=== PATIENT | male | born 1985 | race Hispanic/Latino ===

== ENCOUNTER 2022-04-29 17:00 | Emergency (ER) | payer OTHER, SELFPAY ==
[2022-04-29] MEDS ORDERED: Mag-Al 1200 mg/1200 mg/30 ML UDCUP ONE (18:23)
[2022-04-29] MEDS ORDERED: Acetaminophen 325 MG TAB ONE (18:23)
[2022-04-29] MEDS ORDERED: Lidocaine Viscous Sol 2% 15 ml UD Cup ONE (18:23)
[2022-04-29 18:52] LABS: #Eosinphils 0.1 thou/uL (0.0-0.7); #Lymphocytes 1.2 thou/uL (1.20-3.40); #Monocytes 0.5 thou/uL (0.11-0.59); #Neutrophils 6.2 thou/uL (1.40-6.50); %Basophils 0.3 % (0.0-1.0); %Eosinophils 1.4 % (0.0-10.0); %Lymphocytes 14.9 % (21.0-51.0); %Monocytes 6.7 % (0.0-10.0); %Neutrophils 76.7 % (42.0-75.0); Hemoglobin 15.9 g/dL (14.0-18.0); Mean Corpuscular HGB CONC 33.4 g/dL (32.0-36.0); Mean Corpuscular Hemoglobin 31.2 pg (27.0-31.0); Mean Corpuscular Volume 93.5 fL (78.0-98.0); RBC Distribution Width 12.7 % (11.5-14.5); Red Blood Cell (RBC) Count 5.08 mill/uL (4.70-6.10); White Blood Cell (WBC) Count 8.2 thou/uL (4.8-10.8)
[2022-04-29 19:06] LABS: Large Platelets SLIGHT; MDiff Complete? YES; Mean Platelet Volume 10.1 fL (7.4-10.4); Platelet Count 130 thou/uL (130-400); Platelet Morphology Comment Appears Adequate; RBC Morphology Normal
[2022-04-29 19:21] LABS: ALT (SGPT) 19 U/L (8-55); AST (SGOT) 18 U/L (5-34); Albumin 4.5 g/dL (3.5-5.0); Alkaline Phosphatase 83 U/L (40-110); Anion Gap 14 mmol/L (10-20); BUN (Urea Nitrogen) 10 mg/dL (8.9-20.6); Bilirubin, Total 0.7 mg/dL (0.2-1.2); Calc. Creatinine Clearance 0 mL/min (70-130); Carbon Dioxide 25 mmol/L (22-29); Chloride 105 mmol/L (98-107); Estimated GFR 101; Globulin 2.8 g/dL (2.4-3.5); Glucose 89 mg/dL (70-105); Protein, Total 7.3 g/dL (6.0-8.3); Sodium 140 mmol/L (136-145)
== END 2022-04-29 20:06 ==
LOC: ERS 17:00
DX: R07.9 Chest pain, unspecified (principal); F17.210 Nicotine dependence, cigarettes, uncomplicated
CPT/HCPCS: 36415; 80053; 84484; 85025; 93005

== ENCOUNTER 2022-07-30 15:09 | Emergency (ER) | payer BC, OTHER ==
[2022-07-30] MEDS ORDERED: Ibuprofen 800 MG TAB ONE (17:01)
[2022-07-30] MEDS ORDERED: Acetaminophen 500 MG TAB ONE (17:01)
== END 2022-07-30 18:51 | disposition home or self-care (01) ==
LOC: ERS 15:09
DX: J02.9 Acute pharyngitis, unspecified (principal); F17.290 Nicotine dependence, other tobacco product, uncomplicated
CPT/HCPCS: 87081; 87430; 87804; 99283

== ENCOUNTER 2022-08-01 13:41 | Emergency (ER) | payer BC ==
[2022-08-01] MEDS ORDERED: Ibuprofen 200 MG TAB ONE (14:59)
== END 2022-08-01 15:02 | disposition home or self-care (01) ==
LOC: ERS 13:41
DX: J03.00 Acute streptococcal tonsillitis, unspecified (principal); F17.290 Nicotine dependence, other tobacco product, uncomplicated
CPT/HCPCS: 99282

== ENCOUNTER 2022-09-09 08:19 | Emergency (ER) | payer BC ==
[2022-09-09 08:52] LABS: #Basophils 0.1 thou/uL (0.0-0.2); #Eosinphils 0.2 thou/uL (0.0-0.7); #Lymphocytes 2.2 thou/uL (1.20-3.40); #Monocytes 0.7 thou/uL (0.11-0.59); %Basophils 0.8 % (0.0-1.0); %Eosinophils 1.9 % (0.0-10.0); %Lymphocytes 26.9 % (21.0-51.0); %Monocytes 8.7 % (0.0-10.0); %Neutrophils 61.8 % (42.0-75.0); Hemoglobin 15.6 g/dL (14.0-18.0); Mean Corpuscular HGB CONC 33.9 g/dL (32.0-36.0); Mean Corpuscular Hemoglobin 31.6 pg (27.0-31.0); Mean Corpuscular Volume 93.3 fl (78.0-98.0); Mean Platelet Volume 10.1 fL (7.4-10.4); Platelet Count 158 10x3/uL (130-400); RBC Distribution Width 12.1 % (11.5-14.5); Red Blood Cell (RBC) Count 4.94 mill/uL (4.70-6.10); White Blood Cell (WBC) Count 8.2 10x3/uL (4.8-10.8)
[2022-09-09] MEDS ORDERED: Ketorolac Tromethamine 30 MG/ML VIAL ONE (08:57)
[2022-09-09 09:02] LABS: ALT (SGPT) 11 U/L (8-55); AST (SGOT) 18 U/L (5-34); Albumin 4.5 g/dL (3.5-5.0); Alkaline Phosphatase 71 U/L (40-110); Anion Gap 15 mmol/L (10-20); BUN (Urea Nitrogen) 14 mg/dL (8.9-20.6); Bilirubin, Total 0.3 mg/dL (0.2-1.2); Calc. Creatinine Clearance 0 mL/min (70-130); Calcium 8.8 mg/dL (7.8-10.44); Carbon Dioxide 22 mmol/L (22-29); Chloride 108 mmol/L (98-107); Estimated GFR 92; Globulin 2.6 g/dL (2.4-3.5); Glucose 93 mg/dL (70-105); Potassium 3.6 mmol/L (3.5-5.1); Protein, Total 7.1 g/dL (6.0-8.3); Sodium 141 mmol/L (136-145)
== END 2022-09-09 09:44 | disposition home or self-care (01) ==
LOC: ERS 08:19
DX: R07.81 Pleurodynia (principal); F17.290 Nicotine dependence, other tobacco product, uncomplicated
CPT/HCPCS: 71045; 80053; 83690; 84484; 85025; 93005; 96374; J1885

== ENCOUNTER 2022-11-01 07:35 | Emergency (ER) | payer BC, OTHER ==
[2022-11-01 09:43] LABS: #Basophils 0.1 thou/uL (0.0-0.2); #Eosinphils 0.1 thou/uL (0.0-0.7); #Lymphocytes 2.5 thou/uL (1.20-3.40); #Monocytes 0.8 thou/uL (0.11-0.59); #Neutrophils 7.3 thou/uL (1.40-6.50); %Basophils 0.6 % (0.0-1.0); %Eosinophils 0.8 % (0.0-10.0); %Lymphocytes 23.5 % (21.0-51.0); %Monocytes 7.1 % (0.0-10.0); %Neutrophils 67.9 % (42.0-75.0); Hemoglobin 15.8 g/dL (14.0-18.0); Mean Corpuscular HGB CONC 33.8 g/dL (32.0-36.0); Mean Corpuscular Hemoglobin 31.9 pg (27.0-31.0); Mean Corpuscular Volume 94.2 fl (78.0-98.0); Mean Platelet Volume 9.8 fL (7.4-10.4); Platelet Count 144 10x3/uL (130-400); RBC Distribution Width 12.1 % (11.5-14.5); Red Blood Cell (RBC) Count 4.94 mill/uL (4.70-6.10); White Blood Cell (WBC) Count 10.7 10x3/uL (4.8-10.8)
[2022-11-01 10:08] LABS: ALT (SGPT) 19 U/L (8-55); AST (SGOT) 19 U/L (5-34); Albumin 4.5 g/dL (3.5-5.0); Alkaline Phosphatase 63 U/L (40-110); Anion Gap 16 mmol/L (10-20); BUN (Urea Nitrogen) 9 mg/dL (8.9-20.6); Bilirubin, Total 0.8 mg/dL (0.2-1.2); Calc. Creatinine Clearance 0 mL/min (70-130); Calcium 9.1 mg/dL (7.8-10.44); Carbon Dioxide 22 mmol/L (22-29); Chloride 104 mmol/L (98-107); Estimated GFR 101; Globulin 2.6 g/dL (2.4-3.5); Glucose 131 mg/dL (70-105); Potassium 3.3 mmol/L (3.5-5.1); Protein, Total 7.1 g/dL (6.0-8.3); Sodium 139 mmol/L (136-145)
[2022-11-01] MEDS ORDERED: Famotidine/PF 20 mg/2ml Vial ONE (10:24)
[2022-11-01] MEDS ORDERED: Ondansetron PF 4 MG/2 ML Vial ONE (10:24)
[2022-11-01] MEDS ORDERED: Glycopyrrolate 0.2 MG/ML 5 ML SYRINGE SLOW IVP SCH (10:30)
[2022-11-01 10:40] LABS: Actual Bicarbonate (HCO3v) 25 mEq/L (22-28); Analyzer IN Cardio ER; Base Excess 1.4 mEq/L (-2.0 to +3.0); Calcium, Ionized (venous) 1.06 mmol/L (1.16-1.32); Chloride (VBG) 103 mmol/L (98-106); Hemoglobin (Hb) 16.3 g/dL (13.2-17.3); Potassium (VBG) 4.16 mmol/L (3.70-5.30); Sodium 136.8 mmol/L (133-146); pH (venous) 7.47 (7.32-7.43)
[2022-11-01] MEDS ORDERED: Potassium Chloride 20 MEQ TAB ONE (10:58)
[2022-11-01 12:31] LABS: Bilirubin Negative (Negative); Blood, Urine Negative (Negative); Clarity Clear (Clear); Glucose, Urine (Dipstick) Normal (Negative); Ketone, Urine Negative (Negative); Leukocyte Negative Leu/uL (Negative); Nitrite Negative (Negative); Protein, Urine (Dipstick) Negative (Neg-Trace); Specific Gravity, Urine 1.007 (1.002-1.036); Urobilinogen Normal mg/dL (Less than 2); pH, Urine 6.5 (5.0-9.0)
[2022-11-01 12:43] LABS: Amphetamine Not Detected (NotDetected); Barbiturates Screen Not Detected (NotDetected); Benzodiazepine Screen Not Detected (NotDetected); Cocaine Metabolite Screen Not Detected (NotDetected); Methadone Not Detected (NotDetected); Methamphetamine Not Detected (NotDetected); Opiate Screen Not Detected (NotDetected); Oxycodone Screen Not Detected (NotDetected); Phencyclidine (PCP) Not Detected (NotDetected); THC/Cannabinoid Screen Not Detected (NotDetected); Tricyclic Screen Not Detected (NotDetected)
== END 2022-11-01 12:09 | disposition home or self-care (01) ==
LOC: ERS 07:35
DX: R11.2 Nausea with vomiting, unspecified (principal); R10.13 Epigastric pain; E87.6 Hypokalemia; F17.290 Nicotine dependence, other tobacco product, uncomplicated
CPT/HCPCS: 80053; 80306; 81003; 82010; 82805; 83690; 85025; 96361; 96374; 96375; J2405; S0028

== ENCOUNTER 2022-12-26 17:29 | Emergency (ER) | payer BC ==
[~2022-12-26 17:29] MED LIST: Iopamidol-370 76% 500 ML MDV (1 ML CHARGE) ONE
[2022-12-26 19:09] LABS: #Basophils 0.1 thou/uL (0.0-0.2); #Eosinphils 0.1 thou/uL (0.0-0.7); #Lymphocytes 1.9 thou/uL (1.20-3.40); #Monocytes 0.6 thou/uL (0.11-0.59); #Neutrophils 5.4 thou/uL (1.40-6.50); %Basophils 0.7 % (0.0-1.0); %Eosinophils 1.1 % (0.0-10.0); %Lymphocytes 23.7 % (21.0-51.0); %Monocytes 6.9 % (0.0-10.0); %Neutrophils 67.7 % (42.0-75.0); Hemoglobin 16.4 g/dL (14.0-18.0); Mean Corpuscular HGB CONC 33.4 g/dL (32.0-36.0); Mean Corpuscular Hemoglobin 31.8 pg (27.0-31.0); Mean Platelet Volume 10.5 fL (7.4-10.4); Platelet Count 140 10x3/uL (130-400); Red Blood Cell (RBC) Count 5.16 mill/uL (4.70-6.10)
[2022-12-26 19:32] LABS: ALT (SGPT) 20 U/L (8-55); AST (SGOT) 14 U/L (5-34); Albumin 4.5 g/dL (3.5-5.0); Alkaline Phosphatase 69 U/L (40-110); Anion Gap 15 mmol/L (10-20); BUN (Urea Nitrogen) 9 mg/dL (8.9-20.6); Bilirubin, Total 0.5 mg/dL (0.2-1.2); Calc. Creatinine Clearance 0 mL/min (70-130); Calcium 9.6 mg/dL (7.8-10.44); Carbon Dioxide 27 mmol/L (22-29); Chloride 103 mmol/L (98-107); Estimated GFR 88; Globulin 2.7 g/dL (2.4-3.5); Glucose 102 mg/dL (70-105); Lipase 22 U/L (8-78); Potassium 4.5 mmol/L (3.5-5.1); Protein, Total 7.2 g/dL (6.0-8.3); Sodium 140 mmol/L (136-145)
== END 2022-12-26 20:30 | disposition home or self-care (01) ==
LOC: ERS 17:29
DX: K52.9 Noninfective gastroenteritis and colitis, unspecified (principal); F17.290 Nicotine dependence, other tobacco product, uncomplicated
CPT/HCPCS: 36415; 74177; 80053; 83690; 85025; Q9967

== ENCOUNTER 2023-02-10 12:02 | Emergency (ER) | payer BC ==
[2023-02-10] MEDS ORDERED: Acetaminophen 500 MG TAB ONE (13:08)
== END 2023-02-10 13:22 | disposition home or self-care (01) ==
LOC: ERS 12:02
DX: M25.511 Pain in right shoulder (principal); F17.290 Nicotine dependence, other tobacco product, uncomplicated; Z79.899 Other long term (current) drug therapy

== ENCOUNTER 2023-03-11 15:37 | Emergency (ER) | payer BC ==
[2023-03-11] MEDS ORDERED: predniSONE 20 MG TAB ONE (16:40)
[2023-03-11] MEDS ORDERED: Famotidine 20 MG TAB ONE (16:40)
[2023-03-11] MEDS ORDERED: Loratadine 10 MG TAB PO SCH (16:45)
== END 2023-03-11 17:39 | disposition home or self-care (01) ==
LOC: ERS 15:37
DX: R21 Rash and other nonspecific skin eruption (principal); F17.290 Nicotine dependence, other tobacco product, uncomplicated
CPT/HCPCS: 99282; J7512

== ENCOUNTER 2023-03-23 19:40 | Emergency (ER) | payer BC ==
[2023-03-23 21:21] LABS: #Basophils 0.1 thou/uL (0.0-0.2); #Eosinphils 0.1 thou/uL (0.0-0.7); #Neutrophils 7.1 thou/uL (1.40-6.50); %Basophils 0.4 % (0.0-1.0); %Eosinophils 1.3 % (0.0-10.0); %Monocytes 9.1 % (0.0-10.0); %Neutrophils 63.8 % (42.0-75.0); ALT (SGPT) 20 U/L (8-55); AST (SGOT) 17 U/L (5-34); Albumin 4.3 g/dL (3.5-5.0); Alkaline Phosphatase 69 U/L (40-110); Anion Gap 12 mmol/L (10-20); BUN (Urea Nitrogen) 5 mg/dL (8.9-20.6); Bilirubin, Total 0.3 mg/dL (0.2-1.2); Calc. Creatinine Clearance 0 mL/min (70-130); Calcium 8.9 mg/dL (7.8-10.44); Carbon Dioxide 26 mmol/L (22-29); Chloride 103 mmol/L (98-107); Estimated GFR 91; Globulin 2.7 g/dL (2.4-3.5); Glucose 115 mg/dL (70-105); Hemoglobin 15.6 g/dL (14.0-18.0); Mean Corpuscular HGB CONC 34.1 g/dL (32.0-36.0); Mean Corpuscular Volume 90.9 fl (78.0-98.0); Mean Platelet Volume 11.9 fL (7.4-10.4); Platelet Count 168 10x3/uL (130-400); Potassium 3.3 mmol/L (3.5-5.1); RBC Distribution Width 13.6 % (11.5-14.5); Red Blood Cell (RBC) Count 5.03 mill/uL (4.70-6.10); Sodium 138 mmol/L (136-145); White Blood Cell (WBC) Count 11.1 10x3/uL (4.8-10.8)
[2023-03-23] MEDS ORDERED: hydrOXYzine 25 MG TAB ONE (21:32)
[2023-03-23] MEDS ORDERED: Albuterol 200 PUFF INH ONE (21:32)
== END 2023-03-23 21:47 | disposition home or self-care (01) ==
LOC: ERS 19:40
DX: R06.02 Shortness of breath (principal); F17.290 Nicotine dependence, other tobacco product, uncomplicated
CPT/HCPCS: 36415; 71045; 80053; 85025; 93005

== ENCOUNTER 2023-03-31 12:41 | Emergency (ER) | payer BC ==
[2023-03-31 13:05] LABS: Mean Corpuscular HGB CONC 33.9 g/dL (32.0-36.0); Mean Corpuscular Hemoglobin 31.3 pg (27.0-31.0); Mean Corpuscular Volume 92.4 fl (78.0-98.0); Mean Platelet Volume 11.6 fL (7.4-10.4); Platelet Count 162 10x3/uL (130-400); RBC Distribution Width 13.4 % (11.5-14.5); Red Blood Cell (RBC) Count 5.11 mill/uL (4.70-6.10); White Blood Cell (WBC) Count 8.6 10x3/uL (4.8-10.8)
[2023-03-31 13:08] LABS: Delete Auto Diff?? YES; Manual Diff?? YES
[2023-03-31 13:25] LABS: INR-International Normal Ratio 0.9; Prothrombin Time 12.3 sec (12.0-14.7)
[2023-03-31 13:31] LABS: ALT (SGPT) 20 U/L (8-55); AST (SGOT) 18 U/L (5-34); Albumin 4.4 g/dL (3.5-5.0); Alkaline Phosphatase 68 U/L (40-110); Anion Gap 12 mmol/L (10-20); BUN (Urea Nitrogen) 11 mg/dL (8.9-20.6); Band 1 % (5-11); Bilirubin, Total 0.3 mg/dL (0.2-1.2); Calc. Creatinine Clearance 0 mL/min (70-130); Carbon Dioxide 26 mmol/L (22-29); CellaVision Operator ID LAB.MJL; Chloride 107 mmol/L (98-107); Eosinophils 2 % (0-10); Estimated GFR 90; Globulin 2.9 g/dL (2.4-3.5); Glucose 120 mg/dL (70-105); Lymphocytes 18 % (21-51); Monocytes 4 % (0-10); Neutrophil 68 % (42-75); PTT 22.7 sec (22.9-36.1); Platelet Adequacy Comment Platelets Normal; Protein, Total 7.3 g/dL (6.0-8.3); RBC Morphology Within Normal Limits; Reactive Lymphocytes 6 % (0-10); Sodium 141 mmol/L (136-145); Total Cell Count 114
[2023-03-31] MEDS ORDERED: Proparacaine 0.5% Opth 15 ML BOT ONE (14:00)
== END 2023-03-31 15:11 | disposition home or self-care (01) ==
LOC: ERS 12:41
DX: H53.8 Other visual disturbances (principal); R20.2 Paresthesia of skin; F17.290 Nicotine dependence, other tobacco product, uncomplicated
CPT/HCPCS: 0042T; 36416; 70450; 70496; 70498; 80053; 84484; 85025; 85610; 85730; 93005; Q9967

== ENCOUNTER 2023-04-08 11:55 | Emergency (ER) | payer BC ==
[2023-04-08] MEDS ORDERED: Ketorolac Tromethamine 30 MG/ML VIAL ONE (12:24)
== END 2023-04-08 13:25 | disposition home or self-care (01) ==
LOC: ERS 11:55 → EEVIPCON 11:55 → ERS 13:25
DX: R51.9 Headache, unspecified (principal); F17.290 Nicotine dependence, other tobacco product, uncomplicated
CPT/HCPCS: 70450; 70486; 96372; J1885

== ENCOUNTER 2023-04-22 07:30 | Emergency (ER) | payer BC ==
[2023-04-22 08:00] LABS: Hematocrit 44.2 % (42.0-52.0); Mean Corpuscular HGB CONC 33.9 g/dL (32.0-36.0); Mean Corpuscular Hemoglobin 31.3 pg (27.0-31.0); Mean Corpuscular Volume 92.3 fl (78.0-98.0); Mean Platelet Volume 11.7 fL (7.4-10.4); Platelet Count 163 10x3/uL (130-400); RBC Distribution Width 13.1 % (11.5-14.5); Red Blood Cell (RBC) Count 4.79 mill/uL (4.70-6.10); White Blood Cell (WBC) Count 7.2 10x3/uL (4.8-10.8)
[2023-04-22] MEDS ORDERED: Dicyclomine 20 MG TAB ONE (08:05)
[2023-04-22] MEDS ORDERED: Ondansetron ODT 4 MG TAB ONE ×2 (08:05→08:07)
[2023-04-22 08:06] LABS: Delete Auto Diff?? YES; Manual Diff?? YES
[2023-04-22 08:28] LABS: ALT (SGPT) 15 U/L (8-55); AST (SGOT) 16 U/L (5-34); Albumin 4.3 g/dL (3.5-5.0); Alkaline Phosphatase 65 U/L (40-110); Anion Gap 14 mmol/L (10-20); BUN (Urea Nitrogen) 7 mg/dL (8.9-20.6); Bilirubin, Total 0.5 mg/dL (0.2-1.2); Calc. Creatinine Clearance 0 mL/min (70-130); Calcium 9.2 mg/dL (7.8-10.44); Carbon Dioxide 25 mmol/L (22-29); Chloride 103 mmol/L (98-107); Estimated GFR 89; Globulin 2.5 g/dL (2.4-3.5); Glucose 153 mg/dL (70-105); Lipase 20 U/L (8-78); Potassium 3.2 mmol/L (3.5-5.1); Protein, Total 6.8 g/dL (6.0-8.3); Sodium 139 mmol/L (136-145)
[2023-04-22 09:58] LABS: Eosinophils 3 % (0-10); Lymphocytes 22 % (21-51); Metamyelocyte 1 % (0-0); Monocytes 7 % (0-10); Neutrophil 66 % (42-75)
[2023-04-22 10:02] LABS: Platelet Adequacy Comment Appears Adequate; RBC Morphology Within Normal Limits
== END 2023-04-22 11:57 | disposition home or self-care (01) ==
LOC: ERS 07:30
DX: K52.9 Noninfective gastroenteritis and colitis, unspecified (principal); F17.290 Nicotine dependence, other tobacco product, uncomplicated
CPT/HCPCS: 36415; 80053; 83690; 85025; 99284; Q0162

== ENCOUNTER 2023-04-24 11:48 | Emergency (ER) | payer BC ==
[2023-04-24 13:52] LABS: #Basophils 0.1 thou/uL (0.0-0.2); #Eosinphils 0.2 thou/uL (0.0-0.7); #Monocytes 0.6 thou/uL (0.11-0.59); #Neutrophils 5.5 thou/uL (1.40-6.50); %Basophils 0.9 % (0.0-1.0); %Eosinophils 2.8 % (0.0-10.0); %Lymphocytes 19.5 % (21.0-51.0); %Monocytes 7.6 % (0.0-10.0); %Neutrophils 68.9 % (42.0-75.0); Hemoglobin 14.9 g/dL (14.0-18.0); Mean Corpuscular HGB CONC 33.1 g/dL (32.0-36.0); Mean Corpuscular Hemoglobin 31.3 pg (27.0-31.0); Mean Corpuscular Volume 94.5 fl (78.0-98.0); Mean Platelet Volume 12.2 fL (7.4-10.4); Platelet Count 123 10x3/uL (130-400); RBC Distribution Width 13.2 % (11.5-14.5); Red Blood Cell (RBC) Count 4.76 mill/uL (4.70-6.10); White Blood Cell (WBC) Count 7.9 10x3/uL (4.8-10.8)
[2023-04-24 14:21] LABS: ALT (SGPT) 15 U/L (8-55); AST (SGOT) 11 U/L (5-34); Albumin 4.3 g/dL (3.5-5.0); Alkaline Phosphatase 65 U/L (40-110); Anion Gap 12 mmol/L (10-20); BUN (Urea Nitrogen) 10 mg/dL (8.9-20.6); Bilirubin, Total 0.4 mg/dL (0.2-1.2); Calc. Creatinine Clearance 0 mL/min (70-130); Calcium 9.3 mg/dL (7.8-10.44); Carbon Dioxide 27 mmol/L (22-29); Chloride 106 mmol/L (98-107); Estimated GFR 99; Globulin 2.6 g/dL (2.4-3.5); Glucose 83 mg/dL (70-105); Potassium 3.9 mmol/L (3.5-5.1); Protein, Total 6.9 g/dL (6.0-8.3); Sodium 141 mmol/L (136-145)
[2023-04-24] MEDS ORDERED: Ondansetron ODT 4 MG TAB ONE (14:21)
[2023-04-24] MEDS ORDERED: Dicyclomine 20 MG/2 ML VIAL ONE (14:21)
[2023-04-24 16:39] LABS: SARS-CoV-2 NAA Rapid Test Not Detected (NotDetected)
== END 2023-04-24 16:21 | disposition home or self-care (01) ==
LOC: ERS 11:48
DX: R11.10 Vomiting, unspecified (principal); D19.7 Benign neoplasm of mesothelial tissue of other sites; Z20.822 Contact with and (suspected) exposure to COVID-19; F17.290 Nicotine dependence, other tobacco product, uncomplicated
CPT/HCPCS: 36415; 80053; 85025; 96372; 99283; Q0162

== ENCOUNTER 2023-05-03 23:52 | Emergency (ER) | payer BC ==
[2023-05-04] MEDS ORDERED: Metoclopramide HCl 10 MG/2 ML VIAL ONE (00:32)
[2023-05-04] MEDS ORDERED: Acetaminophen 500 MG TAB ONE (00:32)
== END 2023-05-04 01:48 | disposition home or self-care (01) ==
LOC: ERS 23:52
DX: R51.9 Headache, unspecified (principal); F17.290 Nicotine dependence, other tobacco product, uncomplicated
CPT/HCPCS: 70450; 93005; 96365; J2765

== ENCOUNTER 2023-05-13 11:27 | Emergency (ER) | payer BC | END 2023-05-13 11:30 | disposition home or self-care (01) | LOC: ERS 11:27 | DX: B34.9 Viral infection, unspecified (principal); F17.290 Nicotine dependence, other tobacco product, uncomplicated; Z20.822 Contact with and (suspected) exposure to COVID-19 | CPT/HCPCS: 87635; 99283 ==

== ENCOUNTER 2023-05-16 07:45 | Emergency (ER) | payer BC ==
[2023-05-16] MEDS ORDERED: Dexameth. Sod Phosp. 10 MG/ML (CHEMO USE ONLY) ONE (08:39)
== END 2023-05-16 08:44 | disposition home or self-care (01) ==
LOC: ERS 07:45
DX: B34.9 Viral infection, unspecified (principal); J02.9 Acute pharyngitis, unspecified; F17.290 Nicotine dependence, other tobacco product, uncomplicated
CPT/HCPCS: 99283; J1100

== ENCOUNTER 2023-06-19 14:08 | Emergency (ER) | payer BC | END 2023-06-19 17:22 | disposition home or self-care (01) | LOC: ERS 14:08 | DX: S60.940A Unspecified superficial injury of right index finger, initial encounter (principal); R53.1 Weakness; F17.290 Nicotine dependence, other tobacco product, uncomplicated; W23.1XXA Caught, crushed, jammed, or pinched between stationary objects, initial encounter ==

== ENCOUNTER 2023-06-21 18:11 | Emergency (ER) | payer BC ==
[2023-06-21] MEDS ORDERED: Famotidine 20 MG TAB ONE (18:48)
[2023-06-21] MEDS ORDERED: predniSONE 20 MG TAB ONE (18:48)
== END 2023-06-21 18:52 | disposition home or self-care (01) ==
LOC: ERS 18:11
DX: S20.369A Insect bite (nonvenomous) of unspecified front wall of thorax, initial encounter (principal); S40.861A Insect bite (nonvenomous) of right upper arm, initial encounter; S40.862A Insect bite (nonvenomous) of left upper arm, initial encounter; S70.261A Insect bite (nonvenomous), right hip, initial encounter; F17.290 Nicotine dependence, other tobacco product, uncomplicated; W57.XXXA Bitten or stung by nonvenomous insect and other nonvenomous arthropods, initial encounter
CPT/HCPCS: 99283; J7512